=== PATIENT | male | born 1960 | race Caucasian/White ===

== ENCOUNTER 2018-01-15 13:38 | Emergency (ER) | payer BC ==
[2018-01-15 15:46] VITALS: BP 154/86
--- NOTE | 2018-01-15 16:13 | UC ---
Laceration HPI - HPI Summary HPI Summary: Patient slipped and fell into his snowblower, punctured his bottom lip with his tooth. there is no laceration, but puncture wound present. bleeding is now controlled denies any MAURICE, dizzyness or neck pain. teeth are not loose - History Of Current Complaint Chief Complaint: UCLaceration Stated Complaint: S/P FALL-SPLIT LIP Time Seen by Provider: 01/15/18 16:03 Hx Obtained From: Patient Laceration Location: Face Mechanism Of Injury: Blunt Trauma Severity: Moderate Pain Intensity: 5 Aggravating Factors: Movement - Allergies/Home Medications Allergies/Adverse Reactions: Allergies Allergy/AdvReac Type Severity Reaction Status Date / Time No Known Allergies Allergy Verified 01/15/18 15:46 Home Medications: Home Medications Atorvastatin* [Lipitor 20 MG*] 20 mg PO 1700 01/15/18 [History Confirmed ] metFORMIN* [Glucophage 500 MG TAB *] 500 mg PO BID 01/15/18 [History Confirmed 01/15/18] PMH/Surg Hx/FS Hx/Imm Hx Previously Healthy: Yes - Surgical History Surgical History: None - Family History Known Family History: Positive: Hypertension - Social History Alcohol Use: Rare Substance Use Type: None Smoking Status (MU): Never Smoked Tobacco Review of Systems All Other Systems Reviewed And Are Negative: Yes Constitutional: Positive: Negative Skin: Positive: Other - puncture to li[ Eyes: Positive: Negative ENT: Positive: Negative Respiratory: Positive: Negative Cardiovascular: Positive: Negative Gastrointestinal: Positive: Negative Genitourinary: Positive: Negative Motor: Positive: Negative Neurovascular: Positive: Negative Musculoskeletal: Positive: Negative Neurological: Positive: Negative Psychological: Positive: Negative Is Patient Immunocompromised?: No Physical Exam Triage Information Reviewed: Yes Appearance: Well-Appearing, Well-Nourished, Pain Distress Vital Signs: Initial Vital Signs Temp 99.2 F 01/15/18 15:42 Pulse 82 01/15/18 15:42 Resp 16 01/15/18 15:42 BP 154/86 01/15/18 15:42 Pulse Ox 96 01/15/18 15:42 Vital Signs Reviewed: Yes Eye Exam: Normal ENT Exam: Normal Dental Exam: Normal Neck exam: Normal Neck: Positive: Supple, Nontender, No Lymphadenopathy Respiratory Exam: Normal Respiratory: Positive: Chest non-tender, Lungs clear, Normal breath sounds Cardiovascular Exam: Normal Cardiovascular: Positive: RRR, No Murmur, Pulses Normal Abdominal Exam: Normal Abdomen Description: Positive: Nontender, No Organomegaly, Soft Bowel Sounds: Positive: Present Musculoskeletal Exam: Normal Neurological Exam: Normal Psychological Exam: Normal Skin: Positive: Significant Lesion(s) - puncure wound to lowerlip Laceration Repair - Laceration Repair 1 Description: Irregular : No Repair Necessary - puncture wound Laceration Course/Dx - Course/Dx Course Of Treatment: hx obtained,exam performed ,meds reviewed, wound cleansed. abx given to prevent infection - Differential Dx - Laceration/Wound Differental Diagnoses: Bite Injury, Laceration, Puncture Wound Provider Diagnoses: puncture wound to lower lip Discharge - Sign-Out/Discharge Documenting (check all that apply): Patient Departure All imaging exams completed and their final reports reviewed: Yes - Discharge Plan Condition: Stable Disposition: HOME Prescriptions: Cephalexin CAP* [Keflex CAP*] 500 mg PO BID #10 cap Patient Education Materials: Puncture Wound (ED) Referrals: No Primary Care Phys,NOPCP [Primary Care Provider] - Additional Instructions: 1. keep the area clean and dry 2. Take the antibiotics to prevent infection - Billing Disposition and Condition Condition: STABLE Disposition: Home
== END 2018-01-15 16:18 | disposition home or self-care (01) ==
LOC: UCCORT 13:38
DX: S01.531A Puncture wound without foreign body of lip, initial encounter (principal); W01.198A Fall on same level from slipping, tripping and stumbling with subsequent striking against other object, initial encounter; Y92.9 Unspecified place or not applicable
CPT/HCPCS: 99201; G0463